=== PATIENT | male | born 1965 | race Caucasian/White ===

== ENCOUNTER 2017-01-05 06:36 | Emergency (ER) | payer MEDICARE, OTHER ==
[2017-01-05 08:46] LABS: HEMOGLOBIN 13.9 gm/dl (14.0-17.5); RED BLOOD COUNT 4.54 M/UL (4.20-5.50); WHITE BLOOD COUNT 6.9 K/UL (4.5-11.0)
[2017-01-05 09:08] LABS: BUN/CREATININE RATIO 10 (0-10)
== END 2017-01-05 14:30 ==
LOC: ER1 06:36
PROVIDERS: Student in an Organized Health Care Education/Training Program
DX: R56.9 Unspecified convulsions (principal); S00.01XA Abrasion of scalp, initial encounter; R00.0 Tachycardia, unspecified; F17.210 Nicotine dependence, cigarettes, uncomplicated; Z88.0 Allergy status to penicillin; W19.XXXA Unspecified fall, initial encounter
CPT/HCPCS: 36415; 70450; 71010; 72125; 80053; 80307; 81001; 82550; 82553; 83874; 84484; 85025; 87086; 93005; 99285; G0480; J1642